=== PATIENT | female | born 1965 ===

== ENCOUNTER 2023-02-19 07:17 | Outpatient (CLI) | payer OTHER ==
[~2023-02-19 07:17] MED LIST: ADVAIR 2501 DISK W/1 IH; AMBIEN10 MG PO; ANTIVERT PO; CLARINEX-D 11 BOTTLE PO; CLONAZEPAM0.5 MG PO; DOXIPIN PO; NASONEX17 GM; NORVASC2.5 M1 PO; SINGULAIR10 MG PO; SYNTHROID125 MCG PO; TOPROL XL50 M1 PO
== END 2023-02-19 07:21 | disposition home or self-care (01) ==
LOC: RX STUDY 07:17
PROVIDERS: ATTEND Internal Medicine Gastroenterology
DX: K57.30 Diverticulosis of large intestine without perforation or abscess without bleeding (principal); K21.9 Gastro-esophageal reflux disease without esophagitis; K76.0 Fatty (change of) liver, not elsewhere classified; D50.8 Other iron deficiency anemias; Z86.010 Personal history of colon polyps